=== PATIENT | female | born 1990 | race Caucasian/White ===

== ENCOUNTER 2016-09-26 07:26 | Emergency (ER) | payer MEDICARE, OTHER ==
[~2016-09-26 07:26] MED LIST: AMOXICILLIN500 M1 PO; AMOXIL500 MG PO; AUGMENTIN PO; BACTRIM DS TABL1 TA1 PO; CORTISPORIN-TC10 ML OT; FLEXERIL10 MG PO; KETOPROFEN PO; OMNICEF PO; ORUDIS75 M1 PO; PHENERGAN PO; PREDNISONE10 MG/DOSE PO; VICODIN 5/500 T1 TAB PO
== END 2016-09-26 12:55 | disposition home or self-care (01) ==
LOC: CED 07:26
DX: J02.9 Acute pharyngitis, unspecified (principal); H66.91 Otitis media, unspecified, right ear; F17.200 Nicotine dependence, unspecified, uncomplicated
CPT/HCPCS: 87651; 96374; 96375; 99283; J0780; J1200; J1885